=== PATIENT | female | born 1935 | race Caucasian/White ===

== ENCOUNTER 2016-10-07 13:44 | Emergency (ER) | payer BC, OTHER ==
[~2016-10-07] VITALS: Ht 170.2 cm; Wt 71.7 kg
[~2016-10-07 13:44] MED LIST: ADULT LOW DOSE81 MG PO; LIPITOR40 MG PO; VITAMIN D400 UNI1 PO
[2016-10-07 14:17] LABS: URINE BILIRUBIN NEGATIVE (Negative); URINE BLOOD NEGATIVE (Negative); URINE COLOR YELLOW; URINE GLUCOSE-RANDOM* NEGATIVE (Negative); URINE KETONES NEGATIVE (Negative); URINE LEUKOCYTES-REFLEX NEGATIVE (Negative); URINE PROTEIN (DIPSTICK) TRACE (Negative); URINE SPECIFIC GRAVITY 1.025 (1.003-1.035); URINE UROBILINOGEN 0.2 E.U./dl (0.2-1.0)
[2016-10-07] MEDS ORDERED: BYSTOLIC 5 MG5 M1 PO (14:25)
[2016-10-07 14:35] LABS: ABSOLUTE NEUTROPHILS 4.8 thou/uL (1.4-8.2); BASOPHILS 0.9 % (0.0-2.0); EOSINOPHILS 1.4 % (0.0-3.0); HEMATOCRIT 33.8 % (37.0-47.0); HEMOGLOBIN 11.3 gm/dL (12.0-15.0); LYMPHOCYTES 26.5 % (24.0-44.0); MCH 30.4 pg (26.0-34.0); MCHC 33.4 % (28.0-37.0); MCV 90.7 fL (80.0-100.0); MONOCYTES 5.9 % (1.0-8.0); PLATELET COUNT 248 thou/uL (150-400); POLYS 65.3 % (36.0-66.0); RBC 3.73 mil/uL (4.20-5.00); WBC 7.3 thou/uL (4.0-11.0)
[2016-10-07 14:36] LABS: MANUAL DIFF NO
[2016-10-07 14:46] LABS: CALCIUM 9.2 mg/dL (8.5-10.1); CREATININE 1.6 mg/dL (0.6-1.3); POTASSIUM 4.5 mmol/L (3.5-5.1)
[2016-10-07 14:52] LABS: ALBUMIN 3.3 g/dL (3.4-5.0); TOTAL BILIRUBIN 0.5 mg/dL (<0.1-1.0); TOTAL PROTEIN 7.2 g/dL (6.4-8.2)
[2016-10-07] MEDS ORDERED: NORCO 5-325 TA1 EACH PO (16:36)
[2016-10-07 16:56] VITALS: BP 137/67
== END 2016-10-07 17:03 | disposition home or self-care (01) ==
LOC: ER 13:44
PROVIDERS: Emergency Medicine
DX: S32.038A Other fracture of third lumbar vertebra, initial encounter for closed fracture (principal); E78.00 Pure hypercholesterolemia, unspecified; M51.36 Other intervertebral disc degeneration, lumbar region; M81.8 Other osteoporosis without current pathological fracture; I71.4 Abdominal aortic aneurysm, without rupture; Z88.6 Allergy status to analgesic agent; X58.XXXA Exposure to other specified factors, initial encounter; Y93.89 Activity, other specified; Y92.89 Other specified places as the place of occurrence of the external cause; Y99.8 Other external cause status